=== PATIENT | male | born 1990 | race Caucasian/White ===

== ENCOUNTER 2025-04-10 10:30 | Outpatient (REF) | payer OTHER, SELFPAY ==
[2025-04-10 13:16] LABS: MANUAL DIFF FLAG NO
[2025-04-10 13:27] LABS: Hematocrit 43.8 % (42.0-52.0); Hemoglobin 14.6 g/dl (14.0-18.0); Imm Gran Abs Auto 0.02 X10*3/uL (0.00-0.03); Imm Gran Pct Auto 0.4 % (0.0-0.4); Lymphocytes Absolute Auto 1.3 X10*3/uL (1.2-4.9); Mean Corpuscular HGB Conc 33.3 g/dl (31.0-36.0); Mean Corpuscular Hemoglobin 29.3 pg (27.0-33.0); Mean Corpuscular Volume 87.8 fL (80.0-98.0); NRBC Abs Auto 0.000 X10*3/uL (0.0-0.012); NRBC Pct Auto 0.0 /100WBC (0.0-0.2); Platelet Count 203 X10*3/uL (160-400); Red Blood Count 4.99 X10*6/uL (4.60-5.80); White Blood Count 5.1 X10*3/uL (4.8-10.8)
[2025-04-10 18:20] LABS: Alanine Aminotransferase 23 U/L (0-40); Albumin Level 5.0 g/dL (3.5-5.0); Alkaline Phosphatase 61 U/L (39-117); Anion Gap 11 (12-20); Aspartate Amino Transferase 25 U/L (5-37); Blood Urea Nitrogen 12 mg/dL (9-16); Calcium 9.6 mg/dL (8.4-10.2); Carbon Dioxide 27 mmol/L (22-29); Chloride 106 mmol/L (96-108); Cholesterol 165 mg/dL (<200); Estimated Glomerular Filt Rate > 60; HDL Cholesterol 46 mg/dL (>40); Magnesium 2.2 mg/dL (1.6-2.6); Potassium 4.2 mmol/L (3.3-5.1); Sodium 140 mmol/L (135-145); Total Protein 7.7 g/dL (6.5-8.0); Triglycerides 61 mg/dL (<150)
[2025-04-10 18:22] LABS: Appearance Urine Clear; Glucose Urine UA Negative (Negative); PH 6.5 (5.0-9.0); Specific Gravity - Urine 1.020 (1.005-1.025); UMIC TRIGGER UACC YES
[2025-04-10 18:41] LABS: Microalbum/Creatinine Ratio Ur 5.4 ug/mg cr (<30)
[2025-04-10 18:48] LABS: Folate 8.1 ng/mL (> or = 4.0); Vitamin B12 335 pg/mL (200-900)
[2025-04-12 04:48] LABS: HBS Num1 1.96 mIU/mL (0-7.99); HBsAGNum1 0.41 S/CO (0.00-0.99); HIV Num 1 0.07 S/CO (0.00-0.99); Hepatitis B Surface Antigen Negative (Negative); ~HepC Num1 0.22 S/CO (0.00-0.79); ~Hepatitis B Surface Antibody NONREACTIVE (Nonreactive); ~Hepatitis C Antibody Nonreactive (Nonreactive)
[2025-04-15 17:33] LABS: VITAMIN D (1,25 OH) D3 58 pg/mL; Vit D (1,25-Dihydroxy) Total 58 pg/mL (18-72); Vitamin D (1,25 OH) D2 <8 pg/mL
== END 2025-04-10 10:31 | disposition home or self-care (01) ==
LOC: HO.HKASLDS 10:30
PROVIDERS: PCP Student in an Organized Health Care Education/Training Program; Visit Provider Student in an Organized Health Care Education/Training Program
DX: E66.3 Overweight (principal); G47.63 Sleep related bruxism; F17.210 Nicotine dependence, cigarettes, uncomplicated; Z13.1 Encounter for screening for diabetes mellitus; Z87.442 Personal history of urinary calculi; Z68.29 Body mass index [BMI] 29.0-29.9, adult
CPT/HCPCS: 36415; 80053; 80061; 81001; 82043; 82570; 82607; 82652; 82746; 83036; 83735; 85025; 86706; 86803; 87340; 87389

== ENCOUNTER 2025-04-10 10:30 | Outpatient (AMB) | payer OTHER, SELFPAY ==
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
[2025-04-10 10:37] VITALS: BP 122/57; PULSE 67; TEMP 36.7; O2SAT 98; BMI 29.9
--- OUTSIDE RECORDS SUMMARY | 2025-04-10 12:23 | XMS_ITS | Clinical Summary ---
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 Immunizations Name Administration Dates Next Due Tdap 04/04/2017 Social History Tobacco Use Types Packs/Day Years Used Date Smoking Tobacco: Former Smokeless Tobacco: Never Alcohol Use Standard Drinks/Week Comments No 0 (1 standard drink = 0.6 oz pur e alcohol) Sex and Gender Information Value Date Recorded Sex Assigned at Not on file Gender Identity Not on file Sexual Orientation Not on file Last Filed Vital Signs Vital Sign Reading Time Taken Comments Blood Pressure 118/61 08/14/2017 12:00 PM EDT Pulse 62 08/14/2017 12:00 PM EDT Temperature 36.1 C (97 F) 08/14/2017 11:15 AM EDT Respiratory Rate 15 08/14/2017 12:00 PM EDT Oxygen Saturation 98% 08/14/2017 12:00 PM EDT Inhaled Oxygen Concentration - - Weight 77.1 kg (170 lb) 08/14/2017 9:15 AM EDT Height 172.7 cm (5' 8 ) 08/14/2017 9:15 AM EDT Body Mass Index 25.85 08/14/2017 9:15 AM EDT Plan of Treatment Health Maintenance Due Date Last Done Comments Hepatitis B Vaccines (1 of 3 - 3-dose series) 1989 Hepatitis C Screening 1989 COVID-19 Vaccine (#1) 04/28/1990 Depression Screening 2001 Preventative Health Evaluation 10/27/2007 Influenza Vaccine (#1) 2025 DTap / Tdap / Td (2 - Td or Tdap) 04/04/2027 017 Pneumococcal Vaccine Aged Out No long er eligible based on patient's age to complete this topic RSV Ped < 20 months Aged Out No longe r eligible based on patient's age to complete this topic
--- OUTSIDE RECORDS SUMMARY | 2025-04-10 12:23 | XMS_ITS | Clinical Summary ---
Author Organization [facility] Address [address] [place] [address] Care Team Providers Care Client Support Representative Name Role Phone Unavailable Primary Care Provider Unavailabl e Social History Tobacco Use Types Packs/Day Years Used Date Smoking Tobacco: Never Assessed Sex and Gender Information Value Date Recorded Sex Assigned at Not on file Legal Sex Male 6:22 PM EDT Gender Identity Not on file Sexual Orientation Not on file Plan of Treatment Health Maintenance Due Date Last Done Comments Hepatitis C Virus Screening 1989 HIV Screening 2002 DTaP/Tdap/Td Vaccines (1 - Tdap) 2008 Hepatitis B Vaccines (1 of 3 - 19+ 3-dose series) 2008 COVID-19 Vaccine ( - 2023-2 5 season) 2025 HPV Vaccines (No Doses Required) Completed Pneumococcal Vaccine: Pediat fe (0-5 Years) and At-Risk Patients (6 to 49 Years) Aged Out No longer eligible b ased on patient's age to complete this topic
== END 2025-04-10 11:00 | disposition home or self-care (01) ==
LOC: HO.HMCFMS 10:30
PROVIDERS: PCP Student in an Organized Health Care Education/Training Program; Visit Provider Student in an Organized Health Care Education/Training Program
DX: N20.0 Calculus of kidney (principal); F45.8 Other somatoform disorders; F17.200 Nicotine dependence, unspecified, uncomplicated; E66.3 Overweight

== ENCOUNTER 2025-04-24 09:44 | Outpatient (AMB) | payer OTHER, SELFPAY ==
--- NOTE | 2025-04-24 10:04 | MHC.PC.OV ---
Vital Signs 04/24/25 10:05 Height 5 ft 6.93 in Weight 186 lb 8 oz BMI 29.3 BP 126/63 Blood Pressure Location Rt brachial Position Sitting Pulse 74 Pulse Source Pulse Oximeter Temp 97.9 F Temp Source Oral Pulse Oximetry (%) 98 Oxygen Delivery Method Room Air Intake Visit Reasons: 2 wk - lab review Workers Compensation Claims Analyst Required: No Accompanied by: Self / Same As Patient Allergies No Known Allergies Allergy (Verified 04/24/25 10:05) Medication List - Last Reconciled 04/24/25 by Archie Phan MD No Known Home Meds Tobacco use date assessed: 04/24/25 Dental Screening Dental Screen Date: 04/24/25 Did you have a dental visit in the last 12 months?: Yes Did you have a dental problem in the last 6 months where you did not have access to dental care?: No Was dental information given to patient?: Patient has dentist HPI HPI Comments History of Present Illness Details History of Present Illness The patient is a 34 year old individual presenting for a review of laboratory results. Nephrolithiasis: The patient has a history of kidney stones and requires follow-up with urology. A recent urinalysis revealed a small amount of blood, which is considered related to the kidney stones. The patient missed a previous urology appointment due to a scheduling miscommunication and intends to reschedule. Family History of Malignant Neoplasm: The patient provides an updated family history, reporting that the maternal grandmother from breast cancer and the maternal grandfather had colon cancer. Family History: - Maternal grandmother from breast cancer. - Maternal grandfather had colon cancer. Diagnostic Results: - Complete blood count: Normal, including white blood cells, red blood cells, hemoglobin, hematocrit, and platelets. - Chemistry panel: Normal, including sodium, potassium, electrolytes, kidney function, and liver function. - Calcium: Normal. - Hemoglobin A1c: Normal. - Lipid panel: Good, including triglycerides, total cholesterol, LDL, and HDL. - Vitamin B12: Good. - Vitamin D: Good. - Folate: Good. - Hepatitis B, Hepatitis C, and HIV screen: Negative. - Urinalysis: Positive for a small amount of blood. Past Medical History - Nephrolithiasis Health Maintenance - A review of recent lab work confirms the patient is a healthy individual. - All laboratory studies, including CBC, chemistry, HbA1c, lipids, vitamins, and infectious disease screening, are within normal limits. - A follow-up visit is recommended in 3 to 6 months or as needed. [facility] Medical History (Updated 04/24/25 @ 11:30 by Archie Phan MD) Microscopic hematuria Overweight (BMI 25.0-29.9) Nicotine dependence Bruxism Nephrolithiasis Family History Mother No problems noted. Father No problems noted. Social History Housing: House Patient Tobacco Use Status: Current everyday Tobacco user Cigarettes Per Day: 1 service: No Current occupational status: employed Cognitive needs: No Hearing needs: No Vision needs: No Questionnaire PHQ-9 Over the last 2 weeks, how often have you been bothered by any of the following problems? 1. Little interest or pleasure in doing things: not at all 2. Feeling down, depressed, or hopeless: not at all 3. Trouble falling or staying asleep, or sleeping too much: not at all 4. Feeling tired or having little energy: not at all 5. Poor appetite or overeating: not at all 6. Feeling bad about yourself - or that you are a failure or have let yourself or your family down: not at all 7. Trouble concentrating on things, such as reading the newspaper or watching television: not at all 8. Moving or speaking so slowly that other people could have noticed. Or the opposite - being so fidgety or restless that you have been moving around a lot more than usual: not at all 9. Thoughts that you would be better off or of hurting yourself in some way: not at all Total score: 0 Source: Developed by Drs. Jameson Mckinnon, Maricarmen Calderón, Jung Jones and colleagues, with an educational antoinette from [employer]. Thrive Questionnaire Date Thrive assessed: 04/24/25 I am a: Patient What is your living situation today?: I have a steady place to live Within the past 12 months, did the food you bought not last and you didn't have the money to get more?: I choose not to answer this question Within the past 12 months, did you worry whether your food would run out before you got money to buy more?: I choose not to answer this question Do you have trouble paying for medicines?: No Do you have trouble getting transportation to medical appointments?: No Do you have trouble paying your heating and electricity bill?: I choose not to answer this question Do you have trouble taking care of your child, family member or friend?: No Are you currently unemployed and looking for a job?: No Are you interested in more education?: Yes Please select the resources that you would like help with: Housing/Detention Currently or been in a relationship where the following occur: No concerns reported THRIVE Score: 0 AUDIT C Alcohol Use Questionnaire (AUDIT-C) 1. How often do you have a drink containing alcohol?: Never Total Score: 0 TEE-7 AMB Questionnaire TEE-7 Date TEE - 7 assessed: 04/24/25 Feeling nervous, anxious, or on edge: 0 = Not at all Not being able to stop or control worryin = Not at all Worrying too much about different things: 0 = Not at all Trouble relaxin = Not at all Being so restless that it is hard to sit still: 0 = Not at all Becoming easily annoyed or irritable: 0 = Not at all Feeling afraid as if something awful might happen: 0 = Not at all Total TEE-7 score (0-4 normal; 5-9 mild; 10-14 moderate; 15-21 severe): 0 Source: Developed by Drs. Jameson Mckinnon, Maricarmen Calderón, Jung Jones and colleagues, with an educational antoinette from [employer]. Review of Systems Narrative Review of Systems 10-point ROS reviewed and negative except as noted in HPI Physical exam (Primary Care) Vital Signs: Last Vital Signs Temp 97.9 F 04/24/25 10:05 Pulse 74 04/24/25 10:05 BP 126/63 04/24/25 10:05 Pulse Ox 98 04/24/25 10:05 Oxygen Delivery Method Room Air 04/24/25 10:05 BMI result Body Mass Index 29.3 Tobacco/Smoking Status: Tobacco use Status Tobacco use date assessed 04/24/25 04/24/25 10:06 Patient Tobacco Use Status Current everyday Tobacco 04/24/25 10:06 PHQ-9: PHQ-9 Score PHQ-9: Total score 0 04/24/25 10:13 Thrive Assessment: Date of Thrive Assessment Date Thrive assessed 04/24/25 04/24/25 10:06 Currently or been in a relationship where the following occur: No concerns reported Narrative Physical Exam General: Well-appearing, in no acute distress. Vital signs: Within normal limits. HEENT: Normocephalic, atraumatic. PERRLA, EOMI. Conjunctiva clear, sclera anicteric. Oropharynx clear, mucous membranes moist. TMs intact bilaterally. Neck: Supple, no lymphadenopathy, no thyromegaly, no JVD or carotid bruits. Cardiovascular: RRR, normal S1/S2, no murmurs, rubs, or gallops. Peripheral pulses 2+ and symmetric. No edema. Respiratory: Lungs clear to auscultation bilaterally, no wheezes, rales, or rhonchi. Normal effort. Abdomen: Soft, non-tender, non-distended. Normoactive bowel sounds. No hepatosplenomegaly, no masses. MSK: Full range of motion, no joint swelling or deformity. Normal gait. Skin: Warm, dry, intact. No rashes, lesions, or pallor. Neuro: Alert and oriented x3. Cranial nerves II-XII intact. Strength 5/5 throughout. Sensation intact. Reflexes 2+ symmetric. Normal coordination and gait. Psych: Appropriate mood and affect. Normal judgment and insight. Office Procedures Flu Questionnaire Does the patient have a severe egg allergy?: No Does the patient have severe life threatening allergies?: No Does the patient have a fever or illness today?: No Has the patient ever had Guillain-[place]ubon Syndrome?: No Has the patient ever had any past reaction to a flu shot?: No Immunizations Fluarix [id number] (PF) 45 mcg (15 mcg x 3)/0.5 mL IM syringe Performing Provider: Archie Phan MD Performing Location: [facility] Documented (not given) by: Amanda Robin CMA on 04/24/25 10:14 Reason Not Given: Patient Refused Coding Level of Care Code Est Pt Level 3 (65518) Diagnoses Nephrolithiasis N20.0 Nicotine dependence F17.200 Overweight (BMI 25.0-29.9) E66.3 Microscopic hematuria R31.29 Assessment & Plan Assessment & Plan (1) Nephrolithiasis: Code(s): N20.0 - Calculus of kidney Category: Medical (2) Nicotine dependence: Code(s): F17.200 - Nicotine dependence, unspecified, uncomplicated Category: Medical (3) Overweight (BMI 25.0-29.9): Code(s): E66.3 - Overweight Category: Medical (4) Microscopic hematuria: Code(s): R31.29 - Other microscopic hematuria Category: Medical Plan Consent Patient was informed and verbally consented to the use of an ambient scribe for clinic note documentation during this visit. Plan 1. Nephrolithiasis - The small amount of blood in the urine is likely indicative of the known kidney stone. - The patient will follow up with urology; the patient was advised to contact the urology office to reschedule a missed appointment. 2. Family History Of Malignant Neoplasm - The newly reported family history of breast cancer in the maternal grandmother and colon cancer in the maternal grandfather has been noted in the patient's record. Discussion Notes I reviewed the patient's recent laboratory results, which were all within normal limits, including the complete blood count, chemistry panel, hemoglobin A1c, lipid panel, vitamin levels, and screenings for Hepatitis B, C, and HIV. I explained that the patient appears to be a very healthy individual. I noted the small amount of blood in the urine is likely related to the known kidney stone and is not a cause for concern. We discussed the importance of following up with urology for the kidney stones, and I encouraged the patient to reschedule the missed appointment. The patient provided an update on family history, which now includes a maternal grandmother with breast cancer and a maternal grandfather with colon cancer, which I have noted. I advised a follow-up visit in 3 to 6 months, or sooner if any issues arise. Patient Instructions - Your lab results are good and show you are a healthy individual. - All your blood tests, including those for blood counts, kidney and liver function, diabetes, and cholesterol, were normal. - The small amount of blood found in your urine is expected because of your kidney stone and is not a reason to worry. - Please contact the urology specialist's office to make a new appointment for your kidney stones. - You can schedule a follow-up appointment with our office in 3 to 6 months, or call us if you need anything before then. Medical Decision Making The patient is a 34-year-old individual presenting for a review of laboratory results. The comprehensive metabolic panel, complete blood count, lipid panel, hemoglobin A1c, vitamin levels, and infectious disease screens were all within normal limits, indicating the patient is in good health. The finding of microscopic hematuria on urinalysis is clinically correlated with the patient's known history of nephrolithiasis. The primary active medical issue is the kidney stone, for which the patient has been advised to continue care with urology. The patient's family history was updated to include breast and colon cancer, which will be considered for future health maintenance and cancer screening recommendations. The plan is for the patient to reschedule the missed urology appointment and return for a routine follow-up in 3-6 months or as needed. Total Time Statement 20 min Total time spent caring for the patient today includes pre-visit chart review, documentation, review of laboratory and diagnostic imaging results, medication reconciliation, medically necessary evaluation, counseling on diagnoses, care coordination, ordering appropriate tests and medications, review of tests performed by other providers, reporting test results to the patient, and communication with other healthcare providers. Orders: Orders Influenza [id number] Immunization Today Z23 - Encounter for immunization
[2025-04-24 10:05] VITALS: BP 126/63; PULSE 74; TEMP 36.6; O2SAT 98; BMI 29.3
--- OUTSIDE RECORDS SUMMARY | 2025-04-24 10:24 | XMS_ITS | Clinical Summary ---
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
--- OUTSIDE RECORDS SUMMARY | 2025-04-24 10:24 | XMS_ITS | Clinical Summary ---
Author Organization [facility] Address [address] [place] [address] Phone Care Team Providers Care Distribution Designer Name Role Phone Physician, No Pcp Primary Care Provider Unavaila ble Allergies No known active allergies Medications tamsulosin (FLOMAX) 0.4 mg 24 hr capsule Take 1 capsule (0.4 mg total) by mouth 1 (one) time each day for 7 days. Capsules should be taken 30 minutes following the same meal each day. 7 capsule 5 025 ketorolac (TORADOL) 10 mg tablet Take 1 tablet (10 mg total) by mouth every 6 (six) hours if needed for moderate pain for up to 5 days. 20 tablet 5 025 ondansetron ODT (ZOFRAN-ODT) 4 mg disintegrating tablet Let 1 tablet dissolve under the tongue three times daily as needed for nausea or vomiting. 10 tablet 5 025 Active Problems No known active problems Encounters Date Type Department Care Team Description 04/02/2025 1:08 PM EDT - 04/02/2025 4:14 PM EDT Emergency [facility] Emergency [address] [place] [address] Justice Marie MD Kidney stone on left side (Primary Dx) Discharge Disposition: Home or Self Care from Last 3 Months Surgical History Surgery Date Site/Laterality Comments MANDIBLE SURGERY PROCEDURE:MANDIBLE SURGERY AMPUTATION 08/14/2017 Left PROCEDURE:AMPUTATION;COMMENT:Procedure: AMPUTATION PARTIAL FINGER; Surgeon: Giovany Rodríguez MD; Location: [facility]; Service: Orthopedics; Laterality: Left; TISSUE TRANSFER 08/14/2017 Left PROCEDURE:TISSUE TRANSFER;COMMENT:Procedure: TRANSFER ADJACENT TISSUE HAND; Surgeon: Giovany Rodríguez MD; Location: [facility]; Service: Orthopedics; Laterality: Left; Social History Tobacco Use Types Packs/Day Years Used Date Smoking Tobacco: Former Smokeless Tobacco: Never Alcohol Use Standard Drinks/Week Comments No 0 (1 standard drink = 0.6 oz pur e alcohol) Sex and Gender Information Value Date Recorded Sex Assigned at Not on file Legal Sex Male 6:35 AM EST Gender Identity Not on file Sexual Orientation Not on file Obstetrics History Last Filed Vital Signs Vital Sign Reading Time Taken Comments Blood Pressure 130/70 04/02/2025 2:26 PM EDT Pulse 77 04/02/2025 2:26 PM EDT Temperature 36.6 C (97.9 F) 04/02/2025 2:26 PM EDT Respiratory Rate 18 04/02/2025 2:35 PM EDT Oxygen Saturation 99% 04/02/2025 2:26 PM EDT Inhaled Oxygen Concentration - - Weight 83.9 kg (185 lb) 04/02/2025 12:13 PM EDT Height 170.2 cm (5' 7 ) 04/02/2025 12:13 PM EDT Body Mass Index 28.98 04/02/2025 12:13 PM EDT Plan of Treatment Health Maintenance Due Date Last Done Comments Hepatitis B Vaccines (1 of 3 - 19+ 3-dose series) 2008 HPV Vaccines (1 - 3-dose SCD M series) 2016 Depression Screening 06/04/2024 COVID-19 Vaccine ( - 2024-2 6 season) 2025 Influenza Vaccine (#1) 2025 05/30/2022 Cholesterol Screening (Lipid Panel) 04/02/2025 HIV Screening 04/02/2025 Hepatitis C Screening 04/02/2025 Social Influencers of Health Screening 04/02/2025 DTaP,Tdap,and Td Vaccines (2 - Td or Tdap) 04/04/2027 04/04/2017 RSV Immunization Adult Patie nts (1 - 1-dose 75+ series) 2064 HIB Vaccines Aged Out No longer eligi ble based on patient's age to complete this topic Hepatitis A Vaccines Aged Out No long er eligible based on patient's age to complete this topic IPV Vaccines Aged Out No longer eligi ble based on patient's age to complete this topic MMR Vaccines Aged Out No longer eligi ble based on patient's age to complete this topic Meningococcal ACWY Vaccine Aged Out N o longer eligible based on patient's age to complete this topic Meningococcal B Vaccine Aged Out No l onger eligible based on patient's age to complete this topic Pneumococcal Vaccine: Pediat rics (0 to 5 Years) and At-Risk Patients (6 to 49 Years) Aged Out No longer eligi ble based on patient's age to complete this topic RSV Immunization Patients Un saul 20 months Aged Out No longer eligible b ased on patient's age to complete this topic Varicella Vaccines Aged Out No longer eligible based on patient's age to complete this topic Procedures Procedure Name Priority Date/Time Associated Diagnosis Comments URINALYSIS WITH REFLEX MICROSCOPIC STAT 04/02/2025 2:47 PM EDT URINALYSIS WITH REFLEX MICROSCOPIC STAT 04/02/2025 2:[address] ABDOMEN PELVIS WO CONTRAST STAT 04/02/2025 1:54 PM EDT COMPLETE BLOOD COUNT STAT 04/02/2025 12:48 PM EDT COMPREHENSIVE METABOLIC PANEL STAT 04/02/2025 12:26 PM EDT from Last 3 Months Results * (ABNORMAL) Urinalysis with reflex microscopic (04/02/2025 2:47 PM EDT) Specific [place] Urine 1.011 1.003 - 1.030 LAB URINALYSIS - AUTOMATED METHOD 04/02/2025 3:10 PM EDT [facility] pH, Urine 6.0 5.0 - 8.0 pH LAB URINALYSIS - AUTOMATED METHOD 04/02/2025 3:10 PM EDT [facility] Leukocytes, Urine Trace(A) Negative LAB URINALYSIS - AUTOMATED METHOD 04/02/2025 3:10 PM EDT [facility] Nitrite, Urine Negative Negative LAB URINALYSIS - AUTOMATED METHOD 04/02/2025 3:10 PM [facility] Protein, Urine Negative <=Trace mg/dL LAB URINALYSIS - AUTOMATED METHOD 04/02/2025 3:10 PM [facility] Glucose, Urine Negative Negative mg/dL LAB URINALYSIS - AUTOMATED METHOD 04/02/2025 3:10 PM [facility] Ketones, Urine Negative Negative mg/dL LAB URINALYSIS - AUTOMATED METHOD 04/02/2025 3:10 PM [facility] Urobilinogen , Urine 0.2 0.2 - 1.0 mg/dL LAB URINALYSIS - AUTOMATED METHOD 04/02/2025 3:10 PM [facility] Bilirubin, Urine Negative Negative LAB URINALYSIS - AUTOMATED METHOD 04/02/2025 3:10 PM [facility] Blood, Urine Moderate(A) Negative LAB URINALYSIS - AUTOMATED METHOD 04/02/2025 3:10 PM [facility] RBC, Urine 2.5 0 - 4 /HPF LAB URINALYSIS - AUTOMATED METHOD 04/02/2025 3:10 PM [facility] WBC, Urine 3.9 0 - 4 /HPF LAB URINALYSIS - AUTOMATED METHOD 04/02/2025 3:10 PM [facility] Squamous Epithelial, Urine 20 0 - 60 /LPF LAB URINALYSIS - AUTOMATED METHOD 04/02/2025 3:10 PM [facility] Bacteria, Urine Negative Negative /HPF LAB URINALYSIS - AUTOMATED METHOD 04/02/2025 3:10 PM [facility] Hyaline Casts, Urine 4.8(H) 0 - 3 /LPF LAB URINALYSIS - AUTOMATED METHOD 04/02/2025 3:10 PM [facility] Urine Urine specimen obtained by clean catch procedure / Unknown Non-blood Collection / Unknown 04/02/2025 2:47 PM EDT 04/02/2025 3:02 PM EDT us Justice Marie MD LAB URINE ORDERABLES Final Result [facility] [address] [place] [address], [place] [phone] * CT Abdomen Pelvis wo Contrast (04/02/2025 1:54 PM EDT) Anatomical Region Laterality Modality Body Computed Tomogra phy 04/02/2025 2:08 PM EDT Impressions 04/02/2025 2:25 PM EDT Mild left hydronephrosis 4 mm stone the left UVJ. -------- FINAL REPORT -------- Dictated By: Jian Mcarthur Dictated Date: 04/02/2025 14:08 ET Assigned Physician: Jian Mcarthur Reviewed and Electronically Signed By: Jian Mcarthur Signed Date: 04/02/2025 14:25 ET Workstation ID: [id number] Transcribed By: Self Edit Transcribed Date: 04/02/2025 14:08 ET Narrative 04/02/2025 2:25 PM EDT PROCEDURE: CT Abdomen and Pelvis without contrast INDICATION: left flank pain TECHNIQUE: CT of the abdomen and pelvis without contrast. Multiplanar reformats. The examination was performed utilizing dose reduction techniques. DLP: 654 mGy/cm COMPARISON: No priors available. FINDINGS: LOWER THORAX: Lung bases are clear. HEPATOBILIARY: No focal liver lesions. No cholelithiasis or biliary duct dilatation. SPLEEN: No splenomegaly. PANCREAS: No focal mass or ductal dilatation. ADRENALS: No nodules. KIDNEYS/URETERS: Mild left hydronephrosis nonobstructing bilateral renal calculi. 4 mm stone the left UVJ. PELVIC ORGANS/BLADDER: Unremarkable. PERITONEUM / RETROPERITONEUM: No ascites or free air. No retroperitoneal lymphadenopathy. VESSELS: Scattered atherosclerotic calcifications throughout the aorta and its major branches. No aneurysm. GI TRACT: No bowel distention or wall thickening. Normal appendix. BONES AND SOFT TISSUES: Scattered degenerative changes seen throughout the bones. Soft tissues are unremarkable. Procedure Note Jian Mcarthur MD - 04/02/2025 PROCEDURE: CT Abdomen and Pelvis without contrast INDICATION: left flank pain TECHNIQUE: CT of the abdomen and pelvis without contrast. Multiplanarreformats. The examination was performed utilizing dose reductiontechniques. DLP: 654 mGy/cm COMPARISON: No priors available. FINDINGS: LOWER THORAX: Lung bases are clear. HEPATOBILIARY: No focal liver lesions. No cholelithiasis or biliary ductdilatation. SPLEEN: No splenomegaly. PANCREAS: No focal mass or ductal dilatation. ADRENALS: No nodules. KIDNEYS/URETERS: Mild left hydronephrosis nonobstructing bilateral renalcalculi. 4 mm stone the left UVJ. PELVIC ORGANS/BLADDER: Unremarkable. PERITONEUM / RETROPERITONEUM: No ascites or free air. No retroperitoneallymphadenopathy. VESSELS: Scattered atherosclerotic calcifications throughout the aorta andits major branches. No aneurysm. GI TRACT: No bowel distention or wall thickening. Normal appendix. BONES AND SOFT TISSUES: Scattered degenerative changes seen throughout thebones. Soft tissues are unremarkable. IMPRESSION: Mild left hydronephrosis 4 mm stone the left UVJ. -------- FINAL REPORT -------- Dictated By: Jian Mcarthur Dictated Date: 04/02/2025 14:08 ET Assigned Physician: Jian Mcarthur Reviewed and Electronically Signed By: Jian Mcarthur Signed Date: 04/02/2025 14:25 ET Workstation ID: [id number] Transcribed By: Self Edit Transcribed Date: 04/02/2025 14:08 ET us Justice Marie MD IM CT PROCEDURES Final Res ult * (ABNORMAL) CBC (04/02/2025 12:48 PM EDT) WBC 6.2 4.8 - 10.8 K/mcL LAB HEMETOLOGY METHOD 04/02/2025 12:49 PM EDT [facility] RBC 4.70 4.50 - 5.50 M/mcL LAB HEMETOLOGY METHOD 04/02/2025 12:49 PM EDT [facility] Hemoglobin 14.2 13.5 - 17.5 g/dL LAB HEMETOLOGY METHOD 04/02/2025 12:49 PM EDT [facility] Hematocrit 40.8(L) 42.0 - 54.0 % LAB HEMETOLOGY METHOD 04/02/2025 12:49 PM EDT [facility] MCV 86.3 79.0 - 98.0 FL LAB HEMETOLOGY METHOD 04/02/2025 12:49 PM EDT [facility] MCH 30.0 27.0 - 32.0 pcg LAB HEMETOLOGY METHOD 04/02/2025 12:49 PM EDT [facility] MCHC 34.8 32.0 - 37.0 g/dL LAB HEMETOLOGY METHOD 04/02/2025 12:49 PM EDT [facility] RDW 12.6 11.0 - 15.0 % LAB HEMETOLOGY METHOD 04/02/2025 12:49 PM EDT [facility] Platelets 178 130 - 400 K/mcL LAB HEMETOLOGY METHOD 04/02/2025 12:49 PM EDT [facility] MPV 10.4 7.0 - 11.0 FL LAB HEMETOLOGY METHOD 04/02/2025 12:49 PM EDT [facility] NRBC 0.0 <1.0 % LAB HEMETOLOGY METHOD 04/02/2025 12:49 PM EDT [facility] NRBC Absolute 0.00 <0.10 K/mcL LAB HEMETOLOGY METHOD 04/02/2025 12:49 PM EDT [facility] Blood Venous blood specimen / Unknown 04/02/2025 12:48 PM EDT 04/02/2025 12:48 PM EDT us Justice Marie MD LAB BLOOD ORDERABLES Final Result [facility] [address] [place] [address], [place] [phone] * (ABNORMAL) Comprehensive Metabolic Panel (CMP) (04/02/2025 12:26 PM EDT) Sodium 136 133 - 145 mmol/L LAB CHEMISTRY METHOD 04/02/2025 1:13 PM [facility] Potassium 4.0 3.5 - 5.5 mmol/L LAB CHEMISTRY METHOD 04/02/2025 1:13 PM [facility] Chloride 106 96 - 110 mmol/L LAB CHEMISTRY METHOD 04/02/2025 1:13 PM [facility] CO2 24 21 - 32 mmol/L LAB CHEMISTRY METHOD 04/02/2025 1:13 PM [facility] Anion Gap 6 3 - 11 LAB CHEMISTRY METHOD 04/02/2025 1:13 PM [facility] Glucose 101(H) 70 - 100 mg/dL LAB CHEMISTRY METHOD 04/02/2025 1:13 PM [facility] BUN 14 5 - 25 mg/dL LAB CHEMISTRY METHOD 04/02/2025 1:13 PM [facility] Creatinine 1.34(H) 0.70 - 1.30 mg/dL LAB CHEMISTRY METHOD 04/02/2025 1:13 PM [facility] eGFR 71 >=60 mL/min/1. 73m2 LAB CHEMISTRY METHOD 04/02/2025 1:13 PM [facility] Comment:Calculation based on the Chronic Kidney Disease Epidemiology Collaboration (CKD-EPI) equation refit without adjustment for race. BUN/Creatinine Ratio 10.4 LAB CHEMISTRY METHOD 04/02/2025 1:13 PM [facility] Calcium 9.1 8.5 - 10.5 mg/dL LAB CHEMISTRY METHOD 04/02/2025 1:13 PM [facility] AST (SGOT) 17 10 - 42 unit/L LAB CHEMISTRY METHOD 04/02/2025 1:13 PM EDT [facility] ALT (SGPT) 27 10 - 60 unit/L LAB CHEMISTRY METHOD 04/02/2025 1:13 PM EDT [facility] Alkaline Phosphatase 65 42 - 121 unit/L LAB CHEMISTRY METHOD 04/02/2025 1:13 PM EDT [facility] Total Protein 7.6 6.0 - 8.0 g/dL LAB CHEMISTRY METHOD 04/02/2025 1:13 PM EDT [facility] Albumin 4.4 3.2 - 5.0 g/dL LAB CHEMISTRY METHOD 04/02/2025 1:13 PM EDT [facility] Total Bilirubin 0.6 0.0 - 1.4 mg/dL LAB CHEMISTRY METHOD 04/02/2025 1:13 PM EDT [facility] Blood Venous blood specimen / Unknown Venipuncture / Unknown 04/02/2025 12:26 PM EDT 04/02/2025 12:36 PM EDT us Justice Marie MD LAB BLOOD ORDERABLES Final Result [facility] [address] [place] [address], [place] [phone] from Last 3 Months Insurance P Care Teams Distribution Designer Relationship Specialty Start Date End Date Physician, No Pcp PCP - General 04/02/25
--- OUTSIDE RECORDS SUMMARY | 2025-04-24 10:24 | XMS_ITS | Clinical Summary ---
Author Organization [employer] [facility] Address [address] [place] [address] Care Team Providers Care Electronics Recycler Name Role Phone Unavailable Primary Care Provider [...]
== END 2025-04-24 10:17 | disposition home or self-care (01) ==
LOC: HO.HMCFMS 09:45
PROVIDERS: Visit Provider Student in an Organized Health Care Education/Training Program
DX: N20.0 Calculus of kidney (principal); F17.200 Nicotine dependence, unspecified, uncomplicated; E66.3 Overweight; R31.29 Other microscopic hematuria; Z23 Encounter for immunization

== ENCOUNTER → 2025-04-24 09:44 | Outpatient (BNVA) | payer OTHER, SELFPAY | PROVIDERS: Visit Provider Student in an Organized Health Care Education/Training Program | DX: N20.0 Calculus of kidney (principal); E66.3 Overweight; Z68.29 Body mass index [BMI] 29.0-29.9, adult; R31.29 Other microscopic hematuria; F17.200 Nicotine dependence, unspecified, uncomplicated; Z28.21 Immunization not carried out because of patient refusal; Z13.30 Encounter for screening examination for mental health and behavioral disorders, unspecified; Z13.39 Encounter for screening examination for other mental health and behavioral disorders | CPT/HCPCS: 90471; 96127 ==